=== PATIENT | female | born 1995 | race Caucasian/White ===

== ENCOUNTER → 2024-12-10 | Outpatient (CLI) | payer OTHER ==
[2024-12-10 15:36] LABS: HEMATOCRIT 37.2 % (36.0-47.0); HEMOGLOBIN 12.3 g/dl (12.0-15.5); MEAN CORPUSCULAR HEMOGLOBIN 29.4 pg (27.0-33.0); MEAN CORPUSCULAR HGB CONC 33.1 g/dl (32.0-36.5); PLATELET COUNT, AUTOMATED 261 10^3/uL (150-450); RED BLOOD COUNT 4.18 10^6/uL (4.00-5.40); WHITE BLOOD COUNT 8.4 10^3/uL (4.0-10.0)
[2024-12-10 16:10] LABS: Trichomonas vaginalis (AMP) NOT DETECTED (NEGATIVE)
[2024-12-10 16:26] LABS: HIV 1&2 SCREEN NEGATIVE (NEGATIVE)
[2024-12-10 16:34] LABS: GC DNA AMPLIFICATION NEGATIVE (NEGATIVE)
[2024-12-10 18:28] LABS: HEPATITIS C VIRUS ABY INDEX 0.03 INDEX (<0.8)
== END ==
LOC: M PLALAB 13:46
PROVIDERS: ATTEND Nurse Practitioner Family
DX: Z34.81 Encounter for supervision of other normal pregnancy, first trimester (principal)

== ENCOUNTER → 2025-01-07 | Outpatient (CLI) | payer OTHER | LOC: M PLALAB 13:34 | PROVIDERS: ATTEND Advanced Practice Midwife | DX: Z34.82 Encounter for supervision of other normal pregnancy, second trimester (principal); Z3A.00 Weeks of gestation of pregnancy not specified ==

== ENCOUNTER → 2025-02-18 | Outpatient (CLI) | payer OTHER | LOC: M WHC 11:27 | PROVIDERS: ATTEND Advanced Practice Midwife | DX: Z34.82 Encounter for supervision of other normal pregnancy, second trimester (principal); Z3A.19 19 weeks gestation of pregnancy ==

== ENCOUNTER → 2025-04-09 | Outpatient (CLI) | payer OTHER ==
[2025-04-09 14:39] LABS: PLATELET COUNT, AUTOMATED 240 10^3/uL (150-450)
[2025-04-09 14:46] LABS: GLUCOSE CHALLENGE TEST 1 HOUR 110 MG/DL (LESS THAN 140)
[2025-04-09 15:08] LABS: Trichomonas vaginalis (AMP) NOT DETECTED (NEGATIVE)
[2025-04-09 15:14] LABS: HIV 1&2 SCREEN NEGATIVE (NEGATIVE)
[2025-04-09 15:22] LABS: HEPATITIS C VIRUS ABY INDEX 0.04 INDEX (<0.8)
[2025-04-09 15:31] LABS: GC DNA AMPLIFICATION NEGATIVE (NEGATIVE)
== END ==
LOC: M PLALAB 08:52
PROVIDERS: ATTEND Advanced Practice Midwife
DX: Z34.82 Encounter for supervision of other normal pregnancy, second trimester (principal); Z3A.25 25 weeks gestation of pregnancy

== ENCOUNTER → 2025-05-01 | Outpatient (CLI) | payer OTHER | LOC: M WHC 06:47 | PROVIDERS: ATTEND Nurse Practitioner Family | DX: Z36.2 Encounter for other antenatal screening follow-up (principal); Z3A.31 31 weeks gestation of pregnancy ==

== ENCOUNTER → 2025-06-17 | Outpatient (REF) | payer OTHER | LOC: M SFHCWAGY 13:07 | PROVIDERS: ATTEND Obstetrics & Gynecology | DX: Z34.93 Encounter for supervision of normal pregnancy, unspecified, third trimester (principal) ==

== ENCOUNTER 2025-06-29 05:13 | Inpatient (IN) | payer OTHER ==
[~2025-06-29] VITALS: Ht 162.6 cm; Wt 83.4 kg
[2025-06-29] VITALS (7 sets, daily range): BP systolic 114–128; BP diastolic 56–69; TEMP 98.4; O2SAT 96–98
[2025-06-29] MEDS ORDERED: OXYTOCIN 30UNITS IN 0.9% NaCl 500ML IV BAG As Ordered ONE (05:34)
[2025-06-29] MEDS ORDERED: METHYLERGONOVINE MALEATE 0.2 MG/ML 1 ML VIAL IM PRN (05:50)
[2025-06-29] MEDS ORDERED: ANUSOL HC CREAM 30 GM TOP PRN (05:50)
[2025-06-29] MEDS ORDERED: TRANEXAMIC ACID INJection 1,000 MG in NS 100 ML IV PRN (05:50)
[2025-06-29] MEDS ORDERED: CARBOPROST TROMETHAMINE 250 MCG/ML AMP IM PRN (05:50)
[2025-06-29] MEDS ORDERED: OXYTOCIN INJ 10UNITS/ML 1ML VIAL IM PRN (05:50)
[2025-06-29] MEDS ORDERED: OXYTOCIN DRIP 30 UNITS in IV 1 EA IV PRN (05:50)
[2025-06-29] MEDS ORDERED: ACETAMINOPHEN 500 MG TAB PO PRN (05:50)
[2025-06-29] MEDS ORDERED: RHOGAM 300MCG (1500IU) INJ IM SCH (05:50)
[2025-06-29] MEDS ORDERED: DIBUCAINE 1% OINTMENT 30 GM TOP PRN (05:50)
[2025-06-29] MEDS ORDERED: MOM 30 ML SUSPENSION UDC PO PRN (05:50)
[2025-06-29] MEDS ORDERED: OXYTOCIN INJ 10UNITS/ML 1ML VIAL IV PRN (05:50)
[2025-06-29] MEDS ORDERED: LIDOCAINE 1% MDV 20 ML VIAL INFIL PRN (05:50)
[2025-06-29 05:55] LABS: CORD GAS ABE A -5.6; CORD GAS HCO3 A 21.6 MMOL/L; CORD GAS O2 SAT A 88.7 %; CORD GAS PCO2 A 48.4 mmHg; CORD GAS PH A 7.268 UNITS; CORD GAS PO2 A 48.3 mmHg; CORD GAS SBC A 19.8 MMOL/L; CORD GAS TCO2 A 23.1 MMOL/L
[2025-06-29 05:56] LABS: CORD GAS ABE V -4.4; CORD GAS HCO3 V 20.7 MMOL/L; CORD GAS O2 SAT V 93.6 %; CORD GAS PCO2 V 38.8 mmHg; CORD GAS PH V 7.346 UNITS; CORD GAS PO2 V 52.6 mmHg; CORD GAS SBC V 20.7 MMOL/L; CORD GAS TCO2 V 21.9 MMOL/L
[2025-06-29] MEDS: OXYTOCIN DRIP 30 UNITS in IV 1 EA IV PRN (05:59)
[2025-06-29] MEDS: IBUPROFEN 800 MG TAB PO PRN (06:23)
[2025-06-29] MEDS ORDERED: HOME MED LIST COMPLETE! XX SCH (06:45)
[2025-06-29] MEDS ORDERED: LEVOTAB10 PO (06:45)
[2025-06-29] MEDS ORDERED: ACET-907 PO (06:45)
[2025-06-29] MEDS ORDERED: PRENTAB9 PO (06:45)
[2025-06-29] MEDS: PRENATAL VITAMINS CHEWABLE TABLET PO SCH (09:00)
[2025-06-30 06:00] VITALS: BP 108/73; O2SAT 100
[2025-06-30 18:01] VITALS: BP 126/71; O2SAT 92
[2025-07-01 06:00] VITALS: BP 119/60; O2SAT 98
[2025-07-01] MEDS: MEASLES,MUMPS,RUBELLA VACCINE INJ (MMR-II) SC.IMMUN ONE (07:11)
[2025-07-01] MEDS: DOCUSATE SODIUM 100 MG CAPSULE PO PRN (10:52)
== END 2025-07-01 15:10 | disposition home or self-care (01) | DRG 807 ==
LOC: M LDO 05:13 → M LDI 05:34 → M OBS 07:29
PROVIDERS: ADMIT Obstetrics & Gynecology; ATTEND Obstetrics & Gynecology
PROC: 10E0XZZ Delivery of Products of Conception, External Approach (ICD-10-PCS; principal; 2025-06-29)
DX: O62.3 Precipitate labor (principal); Z37.0 Single live birth; Z3A.37 37 weeks gestation of pregnancy